=== PATIENT | male | born 1945 | race Caucasian/White ===

== ENCOUNTER → 2016-12-02 12:17 | Day surgery (SDC) | payer MEDICARE ==
[~2016-12-02 12:17] MED LIST: Lidocaine 1% INJ* 10 MG/ML 30 ML SDV ONE
[2016-12-02 14:39] VITALS: BP 156/94
--- NOTE | 2016-12-03 02:00 | OP ---
DATE OF OPERATION: 12/02/16 [facility] DATE OF : 47 SURGEON: Dr. Farias. CORPORATE TAX MANAGER: CRISTI Claros ANESTHESIA: Local. PRE-OP DIAGNOSIS: Right small finger mass. POST-OP DIAGNOSIS: Right small finger mass. OPERATIVE PROCEDURE: Removal of right small finger mass. ESTIMATED BLOOD LOSS: Zero. TOURNIQUET TIME: About 10 minutes. INDICATION FOR PROCEDURE: David is a 71-year-old male, who has a nonpainful enlarging mass on the volar aspect of his right small finger. He presents for removal. DESCRIPTION OF PROCEDURE: The patient was brought to the operating room, was given a digital block anesthetic with 10 cc of 1% plain lidocaine. The skin of his right hand and forearm was prepped and draped in the usual sterile fashion. The hand and forearm were exsanguinated and the tourniquet elevated to 250 mmHg. An elliptical incision was made centered around the mass and we dissected it out carefully from the flexor tendon sheath. It was sent for pathology. The wound was irrigated. The digital neurovascular bundles were retracted and protected during the procedure. The skin edges were undermined, and then we were able to close the wound primarily with 4-0 nylon suture. The wound was dressed with Xeroform, 4x4, Webril, and Coban. The patient tolerated the procedure well and was brought to the recovery room in good condition. [id number] #: [id number]
== END | disposition home or self-care (01) ==
LOC: OREAST 12:17
PROVIDERS: ATTEND Orthopaedic Surgery
DX: D21.11 Benign neoplasm of connective and other soft tissue of right upper limb, including shoulder (principal); C90.00 Multiple myeloma not having achieved remission; Z87.891 Personal history of nicotine dependence
CPT/HCPCS: 88305; J2001